=== PATIENT | male | born 1950 | race Hispanic/Latino ===

== ENCOUNTER 2018-04-18 06:52 | Day surgery (SDC) | payer MEDICARE, OTHER ==
[~2018-04-18] VITALS: Ht 180.3 cm; Wt 97.1 kg
[~2018-04-18 06:52] MED LIST: AMITIZA24 MCG PO; CHLORPROMAZ50 MG PO; CLONIDINE0.1 MG PO; D AMPHETAMINE SALT PO; D31000 UNIT PO; FOLIC ACID1 M1 PO; HUMALOG100 UNIT/M SC; HYDROCO/APAP1 T13 PO; LANTUS100 UNIT/M SC; LINZESS145 MCG PO; OMEPRAZOLE20 M2 PO; SAVAYSA60 MG PO; ZESTRIL5 M1 PO; ZOCOR10 MG PO
[2018-04-18 08:54] VITALS: BP 138/78
== END 2018-04-18 09:09 | disposition home or self-care (01) ==
LOC: ENDO 06:52 → ORM 12:40
PROVIDERS: ATTEND Internal Medicine Gastroenterology
PROC: 0DB48ZX Excision of Esophagogastric Junction, Via Natural or Artificial Opening Endoscopic, Diagnostic (ICD-10-PCS; principal; 2018-04-18)
PROC: 0DB78ZX Excision of Stomach, Pylorus, Via Natural or Artificial Opening Endoscopic, Diagnostic (ICD-10-PCS; 2018-04-18)
DX: K21.0 Gastro-esophageal reflux disease with esophagitis (principal); K29.50 Unspecified chronic gastritis without bleeding; K44.9 Diaphragmatic hernia without obstruction or gangrene; K22.8 Other specified diseases of esophagus; K22.70 Barrett's esophagus without dysplasia

== ENCOUNTER 2019-06-18 12:34 | Emergency (ER) | payer MEDICARE, OTHER ==
[2019-06-18 13:25] VITALS: BP 102/60
== END 2019-06-18 14:55 | disposition left against medical advice (07) ==
LOC: ED 12:34 → LWOBS 14:55
DX: Z53.21 Procedure and treatment not carried out due to patient leaving prior to being seen by health care provider (principal)